=== PATIENT | female | born 1960 | race Caucasian/White ===

== ENCOUNTER 2017-08-22 05:08 | Inpatient (IN) | payer BC, OTHER ==
[2017-08-09 11:04] VITALS: Ht 160 cm; Wt 55.7 kg
--- NOTE | 2017-08-09 11:27 | PAT Medication Instructions ---
Service Date Aug 09, 2017. Current Home Medication List Levothyroxine Sodium (Levothyroxine Sodium), 1 TAB PO SAT, SUN Levothyroxine Sodium (Levothyroxine Sodium), 1 TAB PO M,T,W,TH,F Meloxicam (Mobic), 15 MG PO QAM Multivitamin (Multivitamin), 1 TAB PO QAM Vitamin A-Beta Carotene (Vitamin A), 1 TAB PO QAM Medication Instructions For Your Scheduled Surgery - Hold the following medications 3-5 days prior to to surgery per surgeon's instructions: Meloxicam (Mobic), 15 MG PO QAM - Hold the following medications the morning of surgery: Multivitamin (Multivitamin), 1 TAB PO QAM Vitamin A-Beta Carotene (Vitamin A), 1 TAB PO QAM - Take the following medications the morning of surgery with a sip of water otherwise nothing to eat or drink after midnight: Levothyroxine Sodium (Levothyroxine Sodium) Tylenol (may take if needed up to 4 hours prior to surgery) If you have any questions please call us at [phone] or [phone] or [phone]
[2017-08-09 12:15] LABS: BASO % 0.5 %; BASO ABS # 0.03 K/uL (0-0.2); COMPLETE YES; EOS % 2.5 %; HEMATOCRIT 38.3 % (37-47); IG% 0.2 %; LYMPH % 36.9 %; LYMPH ABS # 2.37 K/uL (1.2-3.4); MEAN CELL VOLUME 88.7 fL (80-100); MEAN CORPUSCULAR HEMOGLOBIN 29.6 pg (25-34); MEAN CORPUSCULAR HGB CONC 33.4 g/dl (32-36); MONO % 8.1 %; NEUT % 51.8 %; PLATELET COUNT 315 K/uL (130-400); RED BLOOD COUNT 4.32 M/uL (4.2-5.4); WHITE BLOOD COUNT 6.43 K/uL (4.8-10.8)
[2017-08-09 12:22] LABS: URINE APPEARANCE CLEAR (CLEAR); URINE BILIRUBIN NEG (NEG); URINE COLOR YELLOW; URINE NITRITE NEG (NEG); URINE PH 7.5 (4.5-7.5); URINE SPECIFIC GRAVITY 1.005 (1.000-1.030); UROBILINOGEN NEG (NEG)
[2017-08-09 12:26] LABS: MANUAL MICROSCOPIC REQUIRED? NO; REVIEW REQ? NO
[2017-08-09 12:30] LABS: PARTIAL THROMBOPLASTIN RATIO 1.1; PROTHROMBIN TIME (PATIENT) 10.3 SECONDS (9.0-12.0)
--- NOTE | 2017-08-09 12:58 | DIAGNOSTIC IMAGING REPORT ---
CHEST PREADMISSION(PA/LAT) CLINICAL HISTORY: Preoperative evaluation. COMPARISON STUDY: No previous studies for comparison. FINDINGS: Lung volumes are normal. No pneumothorax or pleural effusion is present. There is no evidence of pulmonary edema. Cardiomediastinal silhouette is normal. There may be bilateral breast implants. IMPRESSION: No acute cardiopulmonary findings. Electronically signed by: Michael Jiménez M.D. 08/09/2017 12:57 PM Dictated Date/Time: 08/09/2017 12:56 PM
[2017-08-09 13:28] LABS: BUN/CREATININE RATIO 10.7 (10-20); CALCIUM 9.7 mg/dl (8.5-10.1); CREATININE 0.69 mg/dl (0.60-1.20); POTASSIUM 4.5 mmol/L (3.5-5.1)
--- NOTE | 2017-08-21 09:48 | HISTORY & PHYSICAL EXAMINATION ---
DATE OF ADMISSION: 08/22/2017 CHIEF COMPLAINT: Right hip pain. HISTORY OF PRESENT ILLNESS: The patient is a 56-year-old female with known osteoarthritis about her right hip. She takes Meloxicam daily for pain and disability. She has pain with prolonged weightbearing and standing activities. She has difficulty with any kneeling, bending, or squatting activities. Due to ongoing pain and disability, she now desires to proceed with right total hip arthroplasty. PAST MEDICAL HISTORY: Hypothyroidism, osteoarthritis. PAST SURGICAL HISTORY: Tonsillectomy, hysterectomy. MEDICATIONS: Synthroid 100 mcg Saturday through Saturday, 80 mcg Saturday and Saturday, Meloxicam 15 mg daily. ALLERGIES: SULFA WHICH CAUSES HIVES. SOCIAL HISTORY AND REVIEW OF SYSTEMS: Noncontributory. PHYSICAL EXAMINATION: GENERAL: Well-nourished, well-developed female who appears her stated age. HEAD, EYES, EARS, NOSE, AND THROAT: Normocephalic, atraumatic, extraocular movements intact, oropharynx pink and moist. NECK: Supple without adenopathy. LUNGS: Clear to auscultation bilaterally. HEART: Regular rate and rhythm. ABDOMEN: Soft, nontender, nondistended. EXTREMITIES: The upper extremities are within normal limits. The right hip demonstrates limited range of motion compared to the left. There is limitation of active and passive internal/external rotation with pain at end range. X-RAYS: X-rays were reviewed. She has severe osteoarthritis about the right hip with complete loss of the joint space. There is osteophyte formation about the femoral head and acetabulum. ASSESSMENT: Right hip degenerative joint disease. PLAN: Risks versus benefits were discussed. Consent was obtained. The patient's primary care physician is Nithya Lebron from [facility]. Will proceed with right total hip arthroplasty upon preoperative workup and medical clearance.
[2017-08-22] VITALS (9 sets, daily range): BP systolic 94–112; BP diastolic 61–74; PULSE 74–88; TEMP 36.2–37; O2SAT 96–100
[~2017-08-22] VITALS: Ht 160 cm; Wt 55.7 kg
[~2017-08-22 05:08] MED LIST: LEVO100T7 PO; LEVO88TA3 PO; MELO15TA4 PO; MULT-506 PO; VITATAB19 PO
[2017-08-22] MEDS ORDERED: DEXAMETHASONE 4 MG TAB PO SCH (06:00)
[2017-08-22] MEDS ORDERED: ACETAMINOPHEN 500 MG TAB PO SCH (06:00)
[2017-08-22] MEDS ORDERED: METOCLOPRAMIDE HCL 10 MG TAB PO SCH (06:00)
[2017-08-22] MEDS ORDERED: GABAPENTIN 300 MG CAP PO SCH (06:00)
[2017-08-22] MEDS ORDERED: FAMOTIDINE 20 MG TAB PO SCH (06:00)
[2017-08-22] MEDS ORDERED: ROPIVACAINE 5MG/ML 30 ML 150 MG, BUPIVACAINE/EPINEPHR 0.5% MPF 30 ML, KETOROLAC TROMETH... INFIL SCH ×7 (06:00)
[2017-08-22] MEDS ORDERED: LACTATED RINGER'S 1000ML 500 ML IV ONE (06:00)
[2017-08-22] MEDS ORDERED: LACTATED RINGER'S 1000ML 1,000 ML IV SCH (06:00)
[2017-08-22] MEDS ORDERED: LACTATED RINGER'S 1000ML IV SCH (06:00)
[2017-08-22] MEDS ORDERED: CEFAZOLIN 2000MG IV PUSH 10 ML IV SCH (06:00)
[2017-08-22] MEDS ORDERED: BUPIVACAINE 0.5 % 5 MG/1 ML PF 10ML VIAL ONE (06:19)
[2017-08-22] MEDS: TRANEXAMIC ACID INJ 1,000 MG in SODIUM CHLORIDE 0.9% 100ML 100 ML IV SCH ×2 (06:21→10:33)
[2017-08-22] MEDS ORDERED: POVIDONE-IODINE OP SOLN 30 ML BTL ONE (06:28)
[2017-08-22] MEDS ORDERED: ORTHO JOINT ANESTHETIC ONE (06:28)
[2017-08-22] MEDS ORDERED: BACITRACIN 50000 UNIT VIAL ONE (06:28)
[2017-08-22] MEDS ORDERED: MIDAZOLAM HCL 1 MG/ML 2ML VIAL ONE (06:34)
[2017-08-22] MEDS ORDERED: FENTANYL CITRATE INJ 50 MCG/1 ML 2 ML VIAL ONE (06:34)
--- NOTE | 2017-08-22 07:10 | History & Physical Bridge Note ---
H&P Re-Evaluation Bridge Note: I have examined the patient, reviewed the History & Physical and in the interval since the performance of the History & Physical I have noted the following changes of clinical significance: No changes noted
[2017-08-22] MEDS ORDERED: HYDROmorphone INJ 2 MG/ML SYR/VIAL IV PRN (07:15)
[2017-08-22] MEDS ORDERED: ONDANSETRON INJ 2 MG/ML 2 ML VIAL IV PRN (07:15)
[2017-08-22] MEDS ORDERED: ATROPINE SULFATE 0.1 MG/ML 5ML SYR IV PRN (07:15)
[2017-08-22] MEDS ORDERED: PHENYLEPHRINE 100MCG/ML 5ML SYR IV PRN (07:15)
[2017-08-22] MEDS ORDERED: EpHEDrine SULFATE INJ 50 MG/ML AMP IV PRN (07:15)
[2017-08-22] MEDS ORDERED: KETOROLAC TROMETHAMINE 30 MG/ML VIAL IV. PRN (07:15)
[2017-08-22] MEDS ORDERED: LIDOCAINE HCL 2% 2 ML VIAL (20MG/ML) ONE (07:27)
[2017-08-22] MEDS ORDERED: PROPOFOL IV EMULSION 10 MG/ML 20 ML VIAL IV ONE (07:27)
[2017-08-22] MEDS ORDERED: PHENYLEPHRINE 100MCG/ML 5ML SYR ONE (07:27)
--- NOTE | 2017-08-22 08:05 | [facility] Post Operative Brief Note ---
Immediate Operative Summary Operative Date Aug 22, 2017. Pre-Operative Diagnosis Right hip degenerative joint disease Post-Operative Diagnosis Right hip degenerative joint disease Procedure(s) Performed Right total hip arthroplasty Surgeon Dr. Moss Wet Process Miller Head Surgeon(s) Chucky Mcintosh PA-C Estimated Blood Loss 100 mL Findings severe OA Specimens A: Right femoral head Disposition Recovery Room / PACU
--- NOTE | 2017-08-22 08:22 | OPERATIVE REPORT ---
DATE OF OPERATION: 08/22/2017 PREOPERATIVE DIAGNOSIS: Osteoarthritis, right hip. POSTOPERATIVE DIAGNOSIS: Osteoarthritis, right hip. PROCEDURE: Right Accolade total hip arthroplasty. SURGEON: Dr. Moss. TAPE CUTTER: Chucky Mcintosh PA-C. ANESTHESIA: spinal. COMPLICATIONS: None. DESCRIPTION OF PROCEDURE: Following induction of adequate anesthesia, the patient was placed in the left lateral decubitus position and right Palmira-Langenbeck incision was made. Subcutaneous tissue was sharply dissected. Electrocautery used for hemostasis. The fascia was incised throughout the length of the wound and a knott scissor placed beneath the short external rotators. The pyriformis was tagged with #1 Vicryl. The short external rotators were divided from the posterior aspect of the femur using electrocautery. These were swept posteriorly. A T-capsulotomy incision was made and the hip was dislocated using a combination of flexion, adduction, and internal rotation. Exposure of the femoral neck with old-style Hohmann and a blunt Hohmann was carried out and a femoral rasp was utilized as a guide for making the appropriate level femoral neck cut. This bone fragment was removed and reserved on the back table. Next, attention was turned to the acetabulum where bone hook was used to retract the femur while the offset retractors were placed anterior and posteriorly. A double-angled Hohmann was placed in superior and anterior position exposing the acetabulum nicely. Acetabular labrum as well as posterior capsule elements were removed using a long knife and a long pickup. Fovea centralis was cleared of all soft tissue. Sequential reamings were carried up to a 54 and decision was made to proceed with impaction of a 54 trabecular metal cup. This was impacted and held using a single 35 mm bone screw. The acetabular liner was placed with 15 of elevated posterior wall in the superior and posterior position. Next, attention was turned to the femoral portion of the case where a Bovie and pickup was used to further clear short external rotators from their insertion on the femur. Box osteotome was used to gain access to the femoral canal and the T-handled rasp and a rattail rasp were used to further open and lateral the canal. Sequentially raspings were carried up to a 3 which gave good fit and fill of the proximal femur. A trial reduction was carried out and a 132 degree femoral neck component was chosen as the size to be used. A 2.5 x 36 mm ceramic femoral head was impacted into position, +0 head was utilized. The trial reduction was stable in all degrees of rotation with no [id number] impingement. The hip was dislocated. The trial components were removed and the final femoral stem, neck, and femoral head combination were assembled on the back table and impacted into position. Hip was relocated. Range of motion checked once again successful and the wound was irrigated. The pyriformis repaired to the greater trochanter using #1 Vicryl [id number] suture. A Hemovac drain was placed and the fascia was closed using #1 Vicryl, subcutaneous tissue was closed using 0 Dexon, and skin was closed with ruben. Sterile dressing of Adaptic, 4 x 4's, ABDs, and foam tape was applied. The patient tolerated the procedure well and went to recovery room stable. Due to the complex nature of the procedure, the entire surgery was performed with the operational assistance of Chucky Mcintosh PA-C. The patient care nursing assistant, under direct supervision, was involved in the actual performance of all aspects of the surgical procedure including hemostasis, tissue retraction and incision, instrument management, patient positioning, and wound closure. I attest to the content of the Intraoperative Record and any orders documented therein. Any exceptions are noted below. KESHAV
[2017-08-22] MEDS ORDERED: ESMOLOL HCL 10 MG/ML 10 ML VIAL ONE (08:38)
[2017-08-22] MEDS ORDERED: ZOLPIDEM TARTRATE 5 MG TAB PO PRN (08:45)
[2017-08-22] MEDS ORDERED: ALUMINUM/MAGNESIUM/SIMETH (MAALOX MAX) 30 ML UDC PO PRN (08:45)
[2017-08-22] MEDS ORDERED: MAGNESIUM HYDROXIDE SUSP 30 ML UDC PO PRN (08:45)
[2017-08-22] MEDS ORDERED: METOCLOPRAMIDE HCL INJ 5 MG/ML 2 ML VIAL IV PRN (08:45)
--- NOTE | 2017-08-22 09:07 | DIAGNOSTIC IMAGING REPORT ---
AP PELVIS, CROSSTABLE LATERAL RIGHT HIP History: Right total hip arthroplasty. Degenerative arthritis. Postop. FINDINGS: The patient is status post a right total hip arthroplasty. The hardware is intact. No fracture or dislocation. Surgical drains are in place. IMPRESSION: Right total hip arthroplasty. No evidence for hardware complication Electronically signed by: Jovon Perkins M.D. 08/22/2017 9:06 AM Dictated Date/Time: 08/22/2017 9:05 AM
--- NOTE | 2017-08-22 10:10 | Anesthesiology Progress Note ---
Anesthesia Post Op Note Date & Time Aug 22, 2017 at 10:10 Vital Signs Pain Intensity: 0 Vital Signs Past 12 Hours Date Time Temp Pulse Resp B/P (MAP) Pulse Ox O2 Delivery O2 Flow Rate FiO2 08/22/17 09:21 83 14 100 08/22/17 09:21 85 14 08/22/17 09:20 118/62 08/22/17 09:16 88 13 100 08/22/17 09:16 86 13 08/22/17 09:15 115/62 08/22/17 09:11 94 19 100 08/22/17 09:11 92 19 08/22/17 09:10 118/62 08/22/17 09:06 92 9 08/22/17 09:06 93 9 100 08/22/17 09:06 36.2 88 16 118/62 (75) 100 Nasal Cannula 2 08/22/17 09:05 121/60 08/22/17 09:01 92 13 08/22/17 09:01 92 13 100 08/22/17 09:00 118/64 08/22/17 08:56 96 19 100 08/22/17 08:56 96 19 08/22/17 08:55 120/63 08/22/17 08:54 100 16 08/22/17 08:54 100 16 100 08/22/17 08:51 129/63 08/22/17 08:49 91 14 99 08/22/17 08:49 92 14 08/22/17 08:45 127/69 08/22/17 08:44 106 16 08/22/17 08:44 106 16 100 08/22/17 08:41 117/67 08/22/17 08:39 100 14 08/22/17 08:39 100 14 98 08/22/17 08:35 137/58 08/22/17 08:34 120 17 98 08/22/17 08:34 120 17 08/22/17 08:30 111/62 08/22/17 08:29 120 19 123/60 99 08/22/17 08:29 36.0 120 17 123/60 (75) 99 Oxymask 10 08/22/17 08:29 120 19 08/22/17 05:49 36.5 74 18 109/74 98 Room Air Notes Mental Status: alert / awake / arousable, participated in evaluation Pt Amnestic to Procedure: Yes Nausea / Vomiting: adequately controlled Pain: adequately controlled Airway Patency, RR, SpO2: stable & adequate BP & HR: stable & adequate Hydration State: stable & adequate Anesthetic Complications: no major complications apparent
[2017-08-22] MEDS: D5W AND 1/2NSS + 20MEQ KCL 1,000 ML IV SCH ×2 (10:33→20:35)
[2017-08-22] MEDS: FERROUS GLUCONATE 324 MG TAB PO SCH ×2 (12:04→17:44)
[2017-08-22] MEDS: KETOROLAC TROMETHAMINE 30 MG/ML VIAL IV. SCH ×2 (12:04→17:46)
[2017-08-22] MEDS: ACETAMINOPHEN 500 MG TAB PO SCH ×2 (13:41→21:30)
[2017-08-22] MEDS: ONDANSETRON INJ 2 MG/ML 2 ML VIAL IV PRN (14:23)
[2017-08-22] MEDS: CEFAZOLIN IV 1,000 MG in SYRINGE 0 ML IV SCH (16:14)
[2017-08-22] MEDS: DOCUSATE SODIUM 100 MG CAP PO SCH (20:35)
[2017-08-22] MEDS: ASPIRIN 81 MG ECTAB PO SCH (20:36)
[2017-08-23] MEDS: CEFAZOLIN IV 1,000 MG in SYRINGE 0 ML IV SCH (00:31)
[2017-08-23] MEDS: KETOROLAC TROMETHAMINE 30 MG/ML VIAL IV. SCH ×2 (00:32→05:20)
[2017-08-23] MEDS: OXYCODONE HCL IR 5 MG TAB (IMMEDIATE RELEASE) PO PRN ×2 (03:31→08:52)
[2017-08-23 04:15] VITALS: BP 105/70; PULSE 68; TEMP 36.7; O2SAT 97
[2017-08-23] MEDS: D5W AND 1/2NSS + 20MEQ KCL 1,000 ML IV SCH (05:18)
[2017-08-23] MEDS: ACETAMINOPHEN 500 MG TAB PO SCH (05:19)
[2017-08-23 05:45] LABS: BASO % 0.1 %; BASO ABS # 0.01 K/uL (0-0.2); COMPLETE YES; EOS % 0.1 %; HEMATOCRIT 31.1 % (37-47); IG% 0.3 %; LYMPH % 12.8 %; LYMPH ABS # 2.48 K/uL (1.2-3.4); MEAN CELL VOLUME 88.4 fL (80-100); MEAN CORPUSCULAR HEMOGLOBIN 29.3 pg (25-34); MEAN CORPUSCULAR HGB CONC 33.1 g/dl (32-36); MEAN PLATELET VOLUME 10.2 fL (7.4-10.4); MONO % 8.4 %; NEUT % 78.3 %; PLATELET COUNT 266 K/uL (130-400); RED BLOOD COUNT 3.52 M/uL (4.2-5.4); WHITE BLOOD COUNT 19.31 K/uL (4.8-10.8)
[2017-08-23 06:14] LABS: BUN/CREATININE RATIO 14.1 (10-20); CALCIUM 8.2 mg/dl (8.5-10.1); CREATININE 0.7 mg/dl (0.60-1.20); POTASSIUM 4.3 mmol/L (3.5-5.1)
[2017-08-23] MEDS ORDERED: LEVOTHYROXINE 100 MCG TAB PO SCH (06:30)
[2017-08-23 07:17] VITALS: BP 101/69; PULSE 80; TEMP 36.6; O2SAT 96
[2017-08-23] MEDS ORDERED: DEXAMETHASONE INJ 10 MG in SYRINGE 0 ML IV ONE (07:30)
[2017-08-23] MEDS: ONDANSETRON INJ 2 MG/ML 2 ML VIAL IV PRN (08:03)
[2017-08-23] MEDS: FERROUS GLUCONATE 324 MG TAB PO SCH (08:05)
--- NOTE | 2017-08-23 08:13 | Orthopedic Progress Note ---
Orthopedic Progress Note Date of Service Aug 23, 2017. Subjective Post OP Day: 1 Reports: feeling well Objective calves soft nontender, N/V intact, dressing C/D/I (Hemovac d/c'd), toes mobile Date Time Temp Pulse Resp B/P (MAP) Pulse Ox O2 Delivery O2 Flow Rate FiO2 08/23/17 07:17 36.6 80 18 101/69 (80) 96 Room Air 08/23/17 04:15 36.7 68 16 105/70 (82) 97 Room Air 08/23/17 00:30 Room Air 08/22/17 23:05 36.9 82 16 101/65 (77) 96 Room Air 08/22/17 19:40 Room Air 08/22/17 18:47 37.0 85 16 112/67 (82) 99 Room Air 08/22/17 15:19 36.2 75 16 96/62 (73) 99 Room Air 08/22/17 12:35 75 16 106/72 (83) 99 Room Air 08/22/17 11:35 88 16 94/61 (72) 99 Nasal Cannula 2.0 08/22/17 10:34 36.4 77 16 103/65 (78) 100 Nasal Cannula 1.0 08/22/17 10:05 74 18 100/66 (77) 100 Nasal Cannula 2.0 08/22/17 09:35 99 Nasal Cannula 2.0 08/22/17 09:35 99 Nasal Cannula 2.0 08/22/17 09:35 36.4 82 14 105/66 (79) 99 Nasal Cannula 2.0 08/22/17 09:21 83 14 100 08/22/17 09:21 85 14 08/22/17 09:20 118/62 08/22/17 09:16 88 13 100 08/22/17 09:16 86 13 08/22/17 09:15 115/62 08/22/17 09:11 94 19 100 08/22/17 09:11 92 19 08/22/17 09:10 118/62 08/22/17 09:06 92 9 08/22/17 09:06 93 9 100 08/22/17 09:06 36.2 88 16 118/62 (75) 100 Nasal Cannula 2 08/22/17 09:05 121/60 08/22/17 09:01 92 13 08/22/17 09:01 92 13 100 08/22/17 09:00 118/64 08/22/17 08:56 96 19 100 08/22/17 08:56 96 19 08/22/17 08:55 120/63 08/22/17 08:54 100 16 08/22/17 08:54 100 16 100 08/22/17 08:51 129/63 08/22/17 08:49 91 14 99 08/22/17 08:49 92 14 08/22/17 08:45 127/69 08/22/17 08:44 106 16 08/22/17 08:44 106 16 100 08/22/17 08:41 117/67 08/22/17 08:39 100 14 08/22/17 08:39 100 14 98 08/22/17 08:35 137/58 08/22/17 08:34 120 17 98 08/22/17 08:34 120 17 08/22/17 08:30 111/62 08/22/17 08:29 120 19 123/60 99 08/22/17 08:29 36.0 120 17 123/60 (75) 99 Oxymask 10 08/22/17 08:29 120 19 Laboratory Results 24 Hours: Test 08/23/17 05:19 White Blood Count 19.31 K/uL Red Blood Count 3.52 M/uL Hemoglobin 10.3 g/dL Hematocrit 31.1 % Mean Corpuscular Volume 88.4 fL Mean Corpuscular Hemoglobin 29.3 pg Mean Corpuscular Hemoglobin Concent 33.1 g/dl Platelet Count 266 K/uL Mean Platelet Volume 10.2 fL Neutrophils (%) (Auto) 78.3 % Lymphocytes (%) (Auto) 12.8 % Monocytes (%) (Auto) 8.4 % Eosinophils (%) (Auto) 0.1 % Basophils (%) (Auto) 0.1 % Neutrophils # (Auto) 15.14 K/uL Lymphocytes # (Auto) 2.48 K/uL Monocytes # (Auto) 1.62 K/uL Eosinophils # (Auto) 0.01 K/uL Basophils # (Auto) 0.01 K/uL Assessment & Plan Assessment: 56 yo female stable POD #1 s/p right GUZMAN Plan: 1. DVT prophylaxis- ASA, SCDs 2. PT/OT 3. D/C planning- home w/ HH
[2017-08-23] MEDS ORDERED: ONDA8TAB12 PO (08:16)
[2017-08-23] MEDS ORDERED: RXC5 PO (08:16)
[2017-08-23] MEDS ORDERED: ACET-24 PO (08:16)
[2017-08-23] MEDS ORDERED: ASPEC81 PO (08:16)
--- NOTE | 2017-08-23 08:17 | Discharge Instructions ---
Discharge Instructions Date of Service Aug 23, 2017. Admission Reason for Admission: Right Hip Osteoarthritis Discharge Discharge Diagnosis / Problem: Right hip arthritis Discharge Goals Goal(s): Decrease discomfort, Improve function Activity Recommendations Activity Limitations: as noted below Weightbearing Status: Right weightbearing (as tolerated) . Instructions / Follow-Up Instructions / Follow-Up ACTIVITY RECOMMENDATIONS: SELF CARE INSTRUCTIONS AFTER TOTAL HIP REPLACEMENT Until the incision and soft tissues around your hip have healed, there is a possibility that the hip prosthesis could dislocate. A. Observe the following precautions to prevent dislocation: 1. Don't bend your hip greater than 90 degrees. 2. Avoid crossing your legs or ankles while standing or lying. 3. Sit with your feet placed 6 inches apart. 4. When sitting, keep your knees below your hips. Sit on a firm surface, avoid deep, soft chairs and couches. Use an elevated toilet seat in the bathroom. 5. Don't bend over at the waist. Use a long handled shoehorn and a sock aid to help you put on your shoes and socks. A logistics planning engineer can help you sweet pickled fruit maker objects that are too high or too low to reach. 6. Keep car riding to a minimum for at least one month after surgery. B. Your balance may be shaky for a while. Use crutches or a walker until directed by your doctor. C. Use hand rails when walking on stairs. D. Wear low heeled shoes with non-slip soles. E. Be sure that your floors are free of things that could trip you - throw rugs , electrical cords, small objects. Avoid wet and waxed floors, especially with crutches and canes. F. Try to walk several times a day with rest periods between. G. Continue with all the exercises taught to you in the hospital. Again, make walking a part of your daily routine. SPECIAL CARE INSTRUCTIONS: VERY IMPORTANT TO READ AND REVIEW A. You may still be at risk for phlebitis and blood clots. 1. Wear surgical stockings (LILY hose) for 2 weeks after surgery to improve circulation and reduce swelling. 2. Take Aspirin 81mg twice daily for 4 weeks or as directed by your doctor. This is your blood thinner. 3. High risk patients may be prescribed a stronger blood thinner if necessary. 4. If you are on Coumadin normally, your family doctor/qa engineer should monitor your blood work. Expect a phone call the day of or the day after bloodwork is drawn to adjust your dosage. B. You must take antibiotics before having dental work, bladder, bowel and other surgery. Your doctor will provide you with a permanent card to carry describing precautions. C. Call [facility] if you have a fever, redness or swelling around the incision, cloudy drainage from incision, or sudden increase in pain in your hip, not relieved by your regular pain medication. D. Please call the office at if you have any concerns or questions about your operation or recovery. * YOU MAY SHOWER, NO TUB BATHS UNTIL CLEARED BY YOUR DOCTOR. * WEAR LILY HOSE 20 HOURS PER DAY FOR 2 WEEKS. * YOU SHOULD USE A WALKER OR CRUTCHES FOR 2-4 WEEKS. THIS WILL HELP PREVENT STRAIN ON YOUR HIP MUSCLE AND ALLOW IT TO HEAL PROPERLY. YOU MAY WEAN TO A CANE TOLERATED. * MOST PATIENTS WILL HAVE HOME NURSING FOR THERAPY. IF YOU DECIDE TO DO OUTPATIENT PHYSICAL THERAPY, PLEASE SCHEDULE THIS 3 TIMES PER WEEK. Silverlon- This is a large adhesive bandage that contains silver ions. This helps your incision heal by fighting off bacteria and protecting it from the outside environment. You are permitted to shower with this dressing. This will remain on your incision for 7 days and then should be removed. Some visible blood or drainage through the dressing window is normal. If there is significant drainage or leaking noted before the 7 days notify your doctor's office immediately. Once removed, keep incision clean and dry. If there is any drainage or redness noted, please call your surgeon. . FOLLOW UP VISIT: If appointment is not already scheduled: Please call [facility] to make a follow-up appointment for 2 weeks after your surgery at . Current Hospital Diet Patient's current hospital diet: Gluten Free Diet Discharge Diet Recommended Diet: Gluten Free Diet Procedures Procedures Performed: Right total hip arthroplasty Pending Studies Studies pending at discharge: no Laboratory Results Hemoglobin A1c Test 08/09/17 11:36 Range/Units Estimated Average Glucose 111 mg/dl Hemoglobin A1c 5.5 4.5-5.6 % Medical Emergencies . Who to Call and When: Medical Emergencies: If at any time you feel your situation is an emergency, please call 911 immediately. . Non-Emergent Contact Non-Emergency issues call your: Surgeon Call Non-Emergent contact if: temperature is above 101.5, your pain is not controlled, wound has increased drainage, wound has increased redness . "Provider Documentation" section prepared by Chucky Mcintosh PA-C. . VTE Core Measure Inpt VTE Proph given/why not?: Other Anticoagulation (ASA), T.E.D. Stockings, SCD's [place] Drug Monitoring Program Search Results: patient reviewed within database, no issues identified
--- NOTE | 2017-08-23 08:43 | Anesthesiology Progress Note ---
Anesthesia Post Op Note Date & Time Aug 23, 2017 at 08:42 Vital Signs Pain Intensity: 5.0 Vital Signs Past 12 Hours Date Time Temp Pulse Resp B/P (MAP) Pulse Ox O2 Delivery O2 Flow Rate FiO2 08/23/17 07:50 Room Air 08/23/17 07:17 36.6 80 18 101/69 (80) 96 Room Air 08/23/17 04:15 36.7 68 16 105/70 (82) 97 Room Air 08/23/17 00:30 Room Air 08/22/17 23:05 36.9 82 16 101/65 (77) 96 Room Air Notes Mental Status: alert / awake / arousable, participated in evaluation Pt Amnestic to Procedure: Yes Nausea / Vomiting: adequately controlled Pain: adequately controlled Airway Patency, RR, SpO2: stable & adequate BP & HR: stable & adequate Hydration State: stable & adequate Neuraxial Anesthesia: sensory block resolved Anesthetic Complications: no major complications apparent
[2017-08-23] MEDS: ASPIRIN 81 MG ECTAB PO SCH (08:51)
[2017-08-23] MEDS: DOCUSATE SODIUM 100 MG CAP PO SCH (08:52)
[2017-08-23] MEDS ORDERED: MULTIVITAMIN TAB PO SCH (09:00)
[2017-08-23] MEDS ORDERED: PANTOprazole SOD 40 MG TAB PO SCH (09:00)
[2017-08-23 09:49] VITALS: BP 101/69; PULSE 80; TEMP 36.6; O2SAT 96
[2017-08-23 10:45] VITALS: BP 128/77; PULSE 77; TEMP 36.8; O2SAT 98
[2017-08-24] MEDS ORDERED: LEVOTHYROXINE 88 MCG TAB PO SCH (06:30)
--- NOTE | 2017-09-05 07:24 | DISCHARGE SUMMARY ---
CHIEF COMPLAINT: Right hip pain. Please see complete history and physical examination. HOSPITAL COURSE: The patient underwent right total hip arthroplasty without complication. She tolerated the procedure well and was discharged to recovery room in stable condition. Her postoperative course was relatively uneventful. Her postoperative pain was reasonably well controlled with a combination of spinal anesthesia, intraoperative joint injection, IV, and oral pain medications. She was started on aspirin for DVT prophylaxis. She also utilized LILY stockings and SCDs for additional prophylaxis. Her H&H was stable and did not require transfusion. Her surgical drain was discontinued on postoperative day 1, her surgical dressing will remain in place for approximately 7 days postoperative. She tolerated postoperative physical therapy reasonably well where she was ambulating and transferring appropriately. She was observing all total hip precautions. She was discharged home on postoperative day 1. She will continue her physical therapy at home. She will continue her aspirin for DVT prophylaxis and follow up in our office in approximately 10-14 days for her initial postop evaluation.
== END 2017-08-23 11:45 | disposition home health service (06) | DRG 470 ==
LOC: C.ACU 05:08 → C.MSW 05:40 → ENRESERV 08:58
PROC: 0SR903Z Replacement of Right Hip Joint with Ceramic Synthetic Substitute, Open Approach (ICD-10-PCS; principal; 2017-08-22 07:00)
DX: M16.11 Unilateral primary osteoarthritis, right hip (principal); E03.9 Hypothyroidism, unspecified